=== PATIENT | male | born 2000 | race Hispanic/Latino ===

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

== ENCOUNTER 2018-10-29 03:07 | Emergency (ER) | payer MEDICAID | END 2018-10-29 05:08 | disposition home or self-care (01) | LOC: EDH 03:07 | DX: S80.01XA Contusion of right knee, initial encounter (principal); F90.9 Attention-deficit hyperactivity disorder, unspecified type; F41.9 Anxiety disorder, unspecified; F31.9 Bipolar disorder, unspecified; Z88.1 Allergy status to other antibiotic agents; W22.8XXA Striking against or struck by other objects, initial encounter; Y93.89 Activity, other specified; Y92.69 Other specified industrial and construction area as the place of occurrence of the external cause; Y99.8 Other external cause status | CPT/HCPCS: 73562 ==

== ENCOUNTER 2019-02-25 04:05 | Emergency (ER) | payer MEDICAID ==
[2019-02-25] MEDS ORDERED: KETOROLAC TROMETHAMINE 30MG/ML ONE (04:44)
== END 2019-02-25 05:18 | disposition home or self-care (01) ==
LOC: EDH 04:05
DX: S29.011A Strain of muscle and tendon of front wall of thorax, initial encounter (principal); F41.9 Anxiety disorder, unspecified; F31.9 Bipolar disorder, unspecified; F90.9 Attention-deficit hyperactivity disorder, unspecified type; Z88.1 Allergy status to other antibiotic agents; X50.0XXA Overexertion from strenuous movement or load, initial encounter; Y93.89 Activity, other specified; Y92.89 Other specified places as the place of occurrence of the external cause; Y99.8 Other external cause status
CPT/HCPCS: 71045; 96372; 99283; J1885

== ENCOUNTER 2024-07-02 18:15 | Emergency (ER) | payer BC, MEDICAID ==
[~2024-07-02] VITALS: Ht 167.6 cm; Wt 72.6 kg
[2024-07-02 19:19] LABS: ADD UA MICROSCOPIC YES; APPEARANCE,URINE CLOUDY (CLEAR); BILIRUBIN,URINE NEGATIVE (NEGATIVE); COLOR,URINE YELLOW (YELLOW); GLUCOSE, URINE (UA) NEGATIVE (NEGATIVE); KETONES,URINE NEGATIVE (NEGATIVE); LEUKOCYTE ESTERASE ,URINE NEGATIVE Leu/uL (NEGATIVE); NITRATE,URINE NEGATIVE (NEGATIVE); OCCULT BLOOD,URINE NEGATIVE (NEGATIVE); PH,URINE 6.5 (5.0-8.0); PROTEIN,URINE NEGATIVE (NEGATIVE); UROBILINOGEN,URINE 0.2 mg/dL (0.2-1.0)
[2024-07-02 19:23] LABS: BACTERIA,URINE RARE /HPF (None Seen); OTHER CASTS, URINE 4 /LPF (None Seen); RBC,URINE 0-1 /HPF (0-1); YEAST,URINE BUDDING MOD /HPF (None Seen)
[2024-07-02] MEDS ORDERED: CLOT15CR23 TP (19:43)
[2024-07-02] MEDS ORDERED: DOXY100C5 PO (19:43)
--- NOTE | 2024-07-02 19:43 | ERN ---
General Chief Complaint: Penis Problem Stated Complaint: PENILE PROBLEM Time Seen by MD: 18:21 Time Seen by Midlevel: 18:21 Source: patient History of Present Illness Initial Comments Patient is a 23-year-old male presenting to the emergency department complaining of pain to the tip of his penis. He does report multiple skin tears and swelling. He does report being uncircumcised. He has a history of chlamydia and gonorrhea. He does report being sexually active but states he is monogamous. There is a low concern for sexually transmitted disease at this time but would still like further evaluation. Allergies: Coded Allergies: amoxicillin (Unverified Allergy, Unknown, 10/29/18) Home Meds Active Scripts Doxycycline Hyclate (Doxycycline Hyclate) 100 Mg Capsule, 1 CAP PO BID for 7 Days, #14 CAP 0 Refills Prov:LOYD ARIZMENDI 07/02/24 Clotrimazole (Clotrimazole) 1 % Cream..g., 1 APPL TP BID for 7 Days, #15 GM 0 R efills apply to affected area(s) Prov:LOYD ARIZMENDI 07/02/24 Past Medical History Past Medical History: No Pertinent History Past Surgical History: None ROS Dictation CONSTITUTIONAL: Negative except for HPI HEAD/FACE: Negative except for HPI EENT: Negative except for HPI RESPIRATORY: Negative except for HPI GASTROINTESTINAL/ABDOMINAL: Negative except for HPI GENITOURINARY: Negative except for HPI MUSCULOSKELETAL: Negative except for HPI INTEGUMENTARY: Negative except for HPI NEUROLOGICAL/PSYCH: Negative except for HPI HEMATOLOGIC/LYMPHATIC: Negative except for HPI All Systems Negative, Except as noted above. 13 point review of systems assessed and all negative except for above. Physical Exam Physical Exam Dictation Vital Signs reviewed General Appearance: Alert, oriented x 3, no acute distress, well developed, nourished. Head and Face: non-traumatic. Eyes: PERRL, pink conjunctivas, eyelid no trauma, anterior chamber with arcus senilis. Ears: Pinnas intact and no signs of trauma or erythema ear canals clear and no discharge TM no erythema Nose: No discharge, no bleeding. Oropharynx: Mouth normal, tongue pink, pharynx clear,no erythema, tonsils no exudates, no abscesses noted, mucous membrane moist Neck: Supple, non-tender, no thyromegaly, no masses, no JVD, no bruits Breast:Deferred Chest:No tenderness, no crepitus, no paradoxical movement, no retractions Lungs:Clear, well-ventilated, symmetric, no rales, no wheezing, no rhonchi, no stridor, good breath sounds bilaterally Heart: Regular rate, regular rhythm, no murmur, no gallops Vascular: no peripheral edema, Abdomen: Soft, positive bowel sounds, nondistended, no guarding, nontender, no rebound, no masses no hepatomegaly, no splenomegaly, no Morley's sign, no hernias. Rectal: Deferred Genital: Penile examination was performed with MAMIE Garcia at bedside, there is some swelling to the tip of the penis consistent with balanitis Neurological: Normal speech, motor function intact, sensory function intact Musculoskeletal: Neck nontender, full range of motion, back nontender, full range of motion, Extremities: nontender, full range of motion Skin: Color pink, dry, no turgor, no rash, no lacerations, no abrasions, no contusions. Lymphatic: Deferred Results Laboratory and Microbiology Lab and Micro Result Laboratory Tests Test 07/02/24 18:55 Urine Color YELLOW (YELLOW) Urine Appearance CLOUDY (CLEAR) H Urine pH 6.5 (5.0-8.0) Urine Specific [place] 1.023 (1.001-1.031) Urine Protein NEGATIVE mg/dL (NEGATIVE) Urine Glucose (UA) NEGATIVE mg/dL (NEGATIVE) Urine Ketones NEGATIVE mg/dL (NEGATIVE) Urine Occult Blood NEGATIVE (NEGATIVE) Urine Nitrate NEGATIVE (NEGATIVE) Urine Bilirubin NEGATIVE mg/dL (NEGATIVE) Urine Urobilinogen 0.2 mg/dL (0.2-1.0) Urine Leukocyte Esterase NEGATIVE Gregorio/uL Urine RBC 0-1 /HPF (0-1) Urine WBC None /HPF (0-1) Urine Bacteria RARE /HPF (None Seen) Urine Other Casts 4 /LPF (None Seen) Urine Yeast MOD /HPF (None Seen) Labs Reviewed?: Yes MDM MDM: Patient is a 23-year-old male presenting to the emergency department complaining of pain to the tip of his penis. He does report multiple skin tears and swelling. He does report being uncircumcised. He has a history of chlamydia and gonorrhea. He does report being sexually active but states he is monogamous. There is a low concern for sexually transmitted disease at this time but would still like further evaluation. On physical examination patient has a mild amount of swelling around the tip penis. His examination is consistent with a balanitis. Given that the patient has a concern for sexually transmitted disease he will be tested for chlamydia and gonorrhea and will be prophylactically treated with 1 g of ceftriaxone and doxycycline outpatient. There was an allergy to amoxicillin reported however he states this is an allergy to when he was a kid and he used developed a rash. Denies any anaphylaxis. Patient is okay taking ceftriaxone injection in the emergency department. Differential diagnosis: Balanitis, exposure to STD, urinary tract infection There are no social concerns with this patient. Prescription drug management Prescriptions will include: Clotrimazole, doxycycline Medical management and examination interpretation discussions were had by me with other qualified healthcare professionals as indicated for the patient's care. ED Course Orders Procedure Category Date Status Time Urinalysis Profile LAB 07/02/24 Complete 18:33 Chlamydia & Gc Pcr GAYATRI 07/02/24 In Process 18:33 Ceftriaxone 1g Vial PHA 07/02/24 Complete (Rocephine 1g Inj) 20:00 Current Medications Medications (Trade) Dose Ordered Sig/Bryan Route PRN Reason Start Time Stop Time Status Last Admin Dose Admin Ceftriaxone Sodium (ROCEphine 1G INJ) 1 gm ONCE ONCE IM 07/02/24 20:00 07/02/24 20:01 DC 07/02/24 20:02 Vital Signs Date Time Temp Pulse Resp B/P (MAP) Pulse Ox O2 Delivery O2 Flow Rate FiO2 07/02/24 20:07 98.6 76 18 120/75 99 Room Air* 0 21 07/02/24 18:59 98.4 74 20 118/77 98 Room Air* 0 21 07/02/24 18:18 98.4 74 20 118/77 98 Room Air 0 DX & DISP Disposition: Discharge Departure Impression: Primary Impression: Balanitis Additional Impression: Possible exposure to STD Condition: Stable Scripts Doxycycline Hyclate (Doxycycline Hyclate) 100 Mg Capsule 1 CAP PO BID for 7 Days, #14 CAP 0 Refills Prov: LOYD ARIZMENDI 07/02/24 Clotrimazole (Clotrimazole) 1 % Cream..g. 1 APPL TP BID for 7 Days, #15 GM 0 Refills apply to affected area(s) Prov: LOYD ARIZMENDI 07/02/24 Referrals: GIANNI CORLEY MD (PCP) Time of Disposition: 19:43 I have reviewed the case, and I agree with, Diagnosis and Plan I performed the substantive portion of the visit. I have reviewed and personally made and approve the management plan that is documented in the note by myself or the OFE. I acknowledge for responsibility for the patient's management plan. LOYD ARIZMENDI Jul 02, 2024 19:43
[2024-07-02] MEDS: cefTRIAXone 1G VIAL IM ONE (20:02)
[2024-07-02 20:07] VITALS: BP 120/75; PULSE 76; RESP 18; TEMP 98.6; O2SAT 99
== END 2024-07-02 20:08 | disposition home or self-care (01) ==
LOC: EDH 18:15
DX: N48.1 Balanitis (principal); Z79.899 Other long term (current) drug therapy; Z88.0 Allergy status to penicillin
CPT/HCPCS: 99284; 87491; 87591; 81001; 96372; J0696